=== PATIENT | male | born 1960 | race Caucasian/White ===

== ENCOUNTER 2020-05-19 13:27 | Emergency (ER) | payer MEDICAID ==
--- NOTE | 2020-05-19 14:32 | EDM.PDOC ---
ED HPI GENERAL MEDICAL PROBLEM - General Chief Complaint: Cardiovascular Problem Stated Complaint: HIGH BP Time Seen by Provider: 05/19/20 14:14 Source of Information: Reports: Patient, Family, RN Notes Reviewed History Limitations: Reports: No Limitations - History of Present Illness INITIAL COMMENTS - FREE TEXT/NARRATIVE: 60-year-old gentleman presents emergency department today with multiple complaints #1 first he is out of his medications and will need a refill he is from [facility] and is unable to get back in touch with his current primary care provider and needs to establish with a new primary care provider. Next complaint is he states he has had some body aches for about 2 weeks no shortness of breath or chest pain no fevers but is concerned about coronavirus would like to be tested. Third complaint is that he has noticed numbness and tingling in his left fingertips and this has occurred after he had trauma to his left shoulder a couple of months ago. Fourth complaint is he has had some stomach issues for the last several months. I informed him that he will need to establish with a primary care and we will focus on the first 2 complaints today - Related Data Allergies Allergy/AdvReac Type Severity Reaction Status Date / Time No Known Allergies Allergy Verified 05/19/20 14:05 Home Meds: Home Meds Famotidine 40 mg PO DAILY 05/19/20 [History] Gabapentin [Neurontin] 300 mg PO BID 05/19/20 [History] Lisinopril/Hydrochlorothiazide [Lisinopril-Hctz 20-12.5 mg Tab] 1 tab PO DAILY 05/19/20 [History] Meloxicam [Mobic] 15 mg PO DAILY 05/19/20 [History] Metoprolol Succinate 50 mg PO DAILY 05/19/20 [History] Orphenadrine [Norflex] 100 mg PO BID 05/19/20 [History] Past Medical History Cardiovascular History: Reports: Hypertension Musculoskeletal History: Reports: Fracture - Infectious Disease History Infectious Disease History: Reports: Chicken Pox Social & Family History - Tobacco Use Tobacco Use Status *Q: Former Tobacco User Used Tobacco, but Quit: Yes Month/Year Tobacco Last Used: 05/2019 - Caffeine Use Caffeine Use: Reports: Coffee - Recreational Drug Use Recreational Drug Type: Reports: Marijuana/Hashish ED ROS GENERAL - Review of Systems Review Of Systems: See Below Constitutional: Reports: No Symptoms HEENT: Reports: No Symptoms Respiratory: Reports: No Symptoms Cardiovascular: Reports: Blood Pressure Problem GI/Abdominal: Reports: Other (Reflux type symptomology) : Reports: No Symptoms Musculoskeletal: Reports: Shoulder Pain, Muscle Pain (Body aches) Skin: Reports: No Symptoms Neurological: Reports: Numbness, Tingling ED EXAM, GENERAL - Physical Exam Exam: See Below Exam Limited By: No Limitations General Appearance: Alert, WD/WN, No Apparent Distress Respiratory/Chest: No Respiratory Distress, Lungs Clear, Normal Breath Sounds, No Accessory Muscle Use, Chest Non-Tender Cardiovascular: Regular Rate, Rhythm, No Murmur Course - Vital Signs Last Recorded V/S: Last Vital Signs Temp 97.5 F 05/19/20 14:09 Pulse 92 05/19/20 14:09 Resp 15 05/19/20 14:09 BP 169/115 H 05/19/20 14:09 Pulse Ox 97 05/19/20 14:09 - Orders/Labs/Meds Orders: Active Orders 24 hr Category Date Time Status CORONAVIRUS COVID-19, PAM Stat Lab 05/19/20 14:24 Ordered Departure - Departure Time of Disposition: 14:31 Disposition: Home, Self-Care 01 Condition: Fair Clinical Impression: Has run out of medications, Body aches Instructions: Muscle Pain, Adult Referrals: PCP,None [Primary Care Provider] - Additional Instructions: We will contact you when the results become available for the Covid test you should be able to refill your medications at any pharmacy recommend please establish with primary care provider in the next 5 to 10 days for further evaluation of all your medical concerns Sepsis Event Note (ED) - Evaluation Sepsis Screening Result: No Definite Risk - Focused Exam Vital Signs: Vital Signs Temp Pulse Resp BP Pulse Ox 05/19/20 14:09 97.5 F 92 15 169/115 H 97 05/19/20 13:56 97.5 F 92 15 169/115 H 97 - My Orders Last 24 Hours: My Active Orders 05/19/20 14:24 CORONAVIRUS COVID-19, PAM Stat - Assessment/Plan Last 24 Hours: My Active Orders 05/19/20 14:24 CORONAVIRUS COVID-19, PAM Stat Plan: Assessment Acuity = acute Site and laterality = body aches and medical compliance Etiology = unknown Manifestations = none Location of injury = Home Lab values = Covid test pending Plan Refill of his current medications 30-day supply I have him follow-up with primary care in the next 7 to 10 days we will contact him with the Covid results when they become available This note was dictated using [employer] voice recognition software please call with any questions on syntax or grammar.
[2020-05-19] MEDS ORDERED: Acetaminophen 325 MG Tab PO ONE (14:34)
== END 2020-05-19 14:43 | disposition home or self-care (01) ==
LOC: JP.ED 13:27
DX: I10 Essential (primary) hypertension (principal); M25.512 Pain in left shoulder; Z76.0 Encounter for issue of repeat prescription; Z87.891 Personal history of nicotine dependence; Z79.899 Other long term (current) drug therapy; Z20.822 Contact with and (suspected) exposure to COVID-19
CPT/HCPCS: 87635; 99283; A9270; U0002

== ENCOUNTER 2022-06-11 08:28 | Emergency (ER) | payer MEDICAID ==
[2022-06-11] MEDS ORDERED: Sodium Chloride 0.9% 10 ML Syringe FLUSH PRN (09:04)
[2022-06-11] MEDS ORDERED: Sodium Chloride 0.9% 1,000 ML IV STA (09:04)
[2022-06-11] MEDS ORDERED: Sodium Chloride 0.9% 50 ML IV SCH (09:15)
[2022-06-11] MEDS ORDERED: Iopamidol 612 MG/ML 200 ML Bottle IV ONE (09:15)
[2022-06-11 09:38] LABS: ESTIMATED GFR 76 mL/min (>60)
[2022-06-11 09:43] LABS: TROPONIN I HIGH SENSITIVITY 7.4 pg/mL (<=60.3)
== END 2022-06-11 11:05 | disposition home or self-care (01) ==
LOC: JP.ED 08:28
DX: R10.12 Left upper quadrant pain (principal); I25.10 Atherosclerotic heart disease of native coronary artery without angina pectoris; E78.00 Pure hypercholesterolemia, unspecified; I10 Essential (primary) hypertension; I25.2 Old myocardial infarction; Z95.5 Presence of coronary angioplasty implant and graft; Z79.899 Other long term (current) drug therapy; Z79.02 Long term (current) use of antithrombotics/antiplatelets; Z87.891 Personal history of nicotine dependence; Z79.01 Long term (current) use of anticoagulants
CPT/HCPCS: 36415; 74177; 80053; 83605; 83690; 84484; 85025; 93005; 93010; 96360; 96361; 99283; 99284-25; J3490; J7030; Q9967